=== PATIENT | female | born 2000 | race Asian ===

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

== ENCOUNTER 2020-01-01 11:20 | Outpatient (CLI) | payer OTHER, MEDICAID | END 2020-01-01 11:21 | disposition home or self-care (01) | LOC: LAB 11:20 | PROVIDERS: ATTEND Obstetrics & Gynecology | DX: R10.9 Unspecified abdominal pain (principal); N93.9 Abnormal uterine and vaginal bleeding, unspecified; Z32.01 Encounter for pregnancy test, result positive | CPT/HCPCS: 36415; 84702 ==

== ENCOUNTER 2020-03-06 13:31 | Outpatient (CLI) | payer OTHER, MEDICAID ==
[2020-03-06 14:21] LABS: BASOPHILS % (AUTO) 0.4 %; EOSINOPHILS # (AUTO) 0.1 10^3/uL (0.0-0.7); EOSINOPHILS % (AUTO) 1.1 %; HGB - HEMOGLOBIN 13.6 g/dL (12.0-16.0); LYMPHOCYTES # (AUTO) 2.2 10^3/uL (1.5-3.5); MEAN CORPUSCULAR HEMOGLOBIN 29.4 pg (27.0-31.0); MEAN CORPUSCULAR HGB CONC 32.6 g/dL (32.0-36.0); MEAN CORPUSCULAR VOLUME 90.1 fL (81.0-99.0); MEAN PLATELET VOLUME 9.3 fL (7.9-10.8); MONOCYTES # (AUTO) 0.4 10^3/uL (0.0-1.0); MONOCYTES % (AUTO) 5.1 %; NEUTROPHILS # (AUTO) 5.7 10^3/uL (1.5-6.6); NEUTROPHILS % (AUTO) 67.2 %; PLT - PLATELET COUNT 294 10^3/uL (130-450); RED BLOOD COUNT 4.63 10^6/uL (4.20-5.40); RED CELL DISTRIBUTION WIDTH 12.1 % (12.0-15.0); WHITE BLOOD COUNT 8.4 x10^3/uL (4.8-10.8)
[2020-03-06 14:48] LABS: % IRON SATURATION 10 % (20-50); IRON 44 ug/dL (28-170); TOTAL IRON BINDING CAPACITY 451 ug/dL (250-450); TRANSFERRIN 322 mg/dL (192-382)
[2020-03-06 14:49] LABS: CRP - C-REACTIVE PROTEIN < 1.0 mg/dL (0-1.0)
[2020-03-06 14:52] LABS: THYROID STIMULATING HORMONE 2.71 uIU/mL (0.34-5.60)
[2020-03-06 14:53] LABS: FREE T3 3.76 pg/mL (2.5-3.9)
[2020-03-06 14:54] LABS: FREE T4 (FREE THYROXINE) 0.78 ng/dL (0.58-1.64)
[2020-03-06 20:55] LABS: RHEUMATOID FACTOR NEGATIVE (Negative)
== END 2020-03-06 13:32 | disposition home or self-care (01) ==
LOC: LAB 13:31
PROVIDERS: ATTEND Nurse Practitioner Family
DX: M25.50 Pain in unspecified joint (principal); R53.83 Other fatigue; M25.432 Effusion, left wrist
CPT/HCPCS: 36415; 83540; 84439; 84443; 84466; 84481; 85025; 85651; 86140; 86376; 86430; 86800

== ENCOUNTER 2020-08-07 20:51 | Emergency (ER) | payer MEDICAID, OTHER ==
[2020-08-07 20:57] VITALS: BP 143/86
--- NOTE | 2020-08-07 21:17 | ED Physician Documentation ---
History of Present Illness - Stated complaint Stated Complaint: JAW SWELLING - Chief complaint Chief Complaint: Heent - History obtained from History obtained from: Patient - Additonal information Additional information: Patient comes emergency department chief complaint of swelling under right mandible for about 3 hours. Patient states it came up suddenly and that while there is some pain is mostly the swelling and feeling of fullness under her tongue and around her right mandibular area. Patient denies trauma. No dental pain. No drainage in her mouth. She has a history of salivary stones. No fevers or chills. No other complaints at this time. Review of Systems Ten Systems: 10 systems reviewed and negative Constitutional: reports: Reviewed and negative Eyes: reports: Reviewed and negative Ears: reports: Reviewed and negative Nose: reports: Reviewed and negative Throat: reports: Other (Swelling around mandible) Cardiac: reports: Reviewed and negative Respiratory: reports: Reviewed and negative GI: reports: Reviewed and negative : reports: Reviewed and negative Skin: reports: Reviewed and negative Musculoskeletal: reports: Reviewed and negative Neurologic: reports: Reviewed and negative Psychiatric: reports: Reviewed and negative Endocrine: reports: Reviewed and negative Immunocompromised: reports: Reviewed and negative PD PAST MEDICAL HISTORY - Past Medical History Past Medical History: Yes Cardiovascular: None Respiratory: None Endocrine/Autoimmune: 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 Psych: None Musculoskeletal: None - Past Surgical History Past Surgical History: No - Present Medications Home Medications: Ambulatory Orders Medication Instructions Recorded Confirmed EPINEPHrine [Epipen 2-Ricardo] 0.3 mg IJ ONCE PRN #0.3 ml 08/10/15 Cholecalciferol (Vitamin D3) 1 tab ORAL DAILY 06/29/18 06/29/18 [Vitamin D3] Cyanocobalamin (Vitamin B-12) 1 tab ORAL DAILY 06/29/18 06/29/18 [Vitamin B-12] Fexofenadine/Pseudoephedrine 1 tab ORAL DAILY 06/29/18 06/29/18 [Deb-D 12 Hour Tablet] - Allergies Allergies/Adverse Reactions: Allergies Allergy/AdvReac Type Severity Reaction Status Date / Time cat dander Allergy Hives Verified 08/07/20 20:54 venom-honey bee Allergy Respiratory Verified 08/07/20 20:54 [bee venom (honey bee)] - Social History Does the pt smoke?: No Smoking Status: Never smoker Does the pt drink ETOH?: No Does the pt have substance abuse?: No - Immunizations Immunizations are current?: Yes - POLST Patient has POLST: No PD ED PE NORMAL - Vitals Vital signs reviewed: Yes - General General: Alert and oriented X 3, No acute distress, Well developed/nourished - HEENT HEENT: Atraumatic, PERRL, EOMI, Moist mucous membranes, Pharynx benign, Dentition benign, Other (Mild submandibular edema on the right. Moderate sublingual fullness, right side. No pharyngeal obstruction. Managing secretions without difficulty.) - Neck Neck: Supple, no meningeal sign - Respiratory Respiratory: No respiratory distress - Derm Derm: Warm and dry - Extremities Extremities: No deformity - Neuro Neuro: Alert and oriented X 3 - Psych Psych: Normal mood, Normal affect Results - Vitals Vitals: Vital Signs - 24 hr 08/07/20 20:54 Temperature 36.5 C Heart Rate 96 Respiratory 16 Rate Blood Pressure 143/86 H O2 Saturation 98 Oxygen O2 Source Room air PD MEDICAL DECISION MAKING - ED course Complexity details: considered differential, d/w patient ED course: I discussed with patient that her symptoms are consistent with salivary gland obstruction. We have discussed using sialagogues and hot packing to help enco urage drainage. We have also discussed follow-up with ENT if she is not feeling any better after a week. We have discussed the usual indications for return. Departure - Departure Disposition: 01 Home, Self Care Clinical Impression: Sialoadenitis of submandibular gland Condition: Stable Instructions: ED Sublingual Gland Obstruction Follow-Up: Sidney Orlando MD [Physician No Access] -
--- OUTSIDE RECORDS SUMMARY | 2020-08-07 21:19 | EXTERNAL MEDICAL SUMMARY RPT | Continuity of Care Document ---
:2000 Demographics Phone Unavailable Preferred Language Unknown Marital Status Unknown Anabaptist Affiliation Unknown Race Unknown Ethnic Group Unknown Author Organization [facility] Address [address] [place] [address] Phone Allergies Encounters Medications Problems Results
== END 2020-08-07 21:22 | disposition home or self-care (01) ==
LOC: ED 20:51
DX: K11.21 Acute sialoadenitis (principal)
CPT/HCPCS: 99281; 99283